=== PATIENT | female | born 2005 | race Caucasian/White ===

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

== ENCOUNTER 2023-02-21 10:46 | Emergency (ER) | payer MEDICAID, SELFPAY ==
[2023-02-21 11:32] VITALS: BP 115/70; PULSE 71; RESP 18; TEMP 36.9; O2SAT 98; BMI 20.5
--- NOTE | 2023-02-21 11:54 | EXP.UTC ---
Discharge Plan Disposition Patient Disposition: Home, Self-Care Condition: Good Prescriptions Prescriptions: New dicyclomine 10 mg capsule 10 mg PO TID PRN (Reason: cramping) Qty: 15 0RF ondansetron 4 mg tablet,disintegrating 4 mg PO Q8H PRN (Reason: nausea and vomiting) Qty: 10 0RF No Action lwtwrezwdokyssm-hweodseqv-SO [Bromfed DM] 2-30-10 mg/5 mL Syrup 10 ml PO Q4H PRN (Reason: Cough) Qty: 240 0RF ondansetron 4 mg tablet,disintegrating 4 mg PO Q8H PRN (Reason: nausea and vomiting) Qty: 10 0RF ffkcgphyfqsdgxv-aegaterno-KL [Bromfed DM] 2-30-10 mg/5 mL Syrup 10 ml PO Q4H PRN (Reason: Cough) Qty: 200 0RF Referrals Follow up/Referrals: Steve Monge MD [Primary Care Provider] - See instructions Activity Restrictions/Add. Instructions Additional Instructions/Restrictions: Drink extra fluids with and between meals. If you have difficulty drinking, try very small amounts of water or suck on ice chips. ? Avoid fruit juices, as these do not replace minerals and can actually increase diarrhea. ? Children and adults can use sports drinks to replenish electrolytes. Younger children and infants should use products formulated for children, like oral rehydration solutions. ? Eat food in small amounts and let your stomach recover. ? Get lots of rest. You may feel tired or weak. ? No greasy or fried foods for the next 24-48 hours BRAT diet Bananas Rice Apples and [place] ? Make sure to drink plenty of liquids ? Return if needed ? Straight to ER if any life threatening symptoms ? Zofran as prescribed ? You was given an outpatient order for diarrhea panel, please collect specimen and bring back to outpatient lab then call back to the [facility] or follow up with family doctor for results ? Follow up with family doctor in the next 48-72 hours if no improvement or any worsening of symptoms Clinical Impressions Clinical Impression: Nausea vomiting and diarrhea Stand Alone Forms Stand Alone Forms: Work/School Release Instructions Patient Instructions: Nausea and Vomiting-Adult, Diarrhea, DI for Headache Discharge ED Provider: Salima Burns [facility] [place] HPI General Stated complaint: Vomiting, headache, bodyaches Mode of Arrival: Ambulatory Source of Information: Patient Limitations: No Limitations Time Seen by Provider: 02/21/23 11:54 Description of Symptoms (Recalled from Triage Doc. by RN): pt c/o body aches, n/v/d, and a HUBBARD x4d HEENT Symptoms (Recalled from RN notes): No Resp Symptoms (Recalled from RN notes): No Skin Symptoms (Recalled from RN notes): No MS Symptoms (Recalled from RN notes): No Functional Status (Recalled from RN notes): wnl History of Present Illness Provider Complaint: Patient states that she has been having low grade fever on and off, body aches, chills, headache and N/V/D States that her kids has been sick with something similar States that she just isnt able to keep much down Related Data Previous Rx's Medication Instructions Recorded edlszdqwhyuipbn-xdeguhkwyavnixl-GM 10 ml PO Q4H PRN Cough #240 mL 07/30/22 2 mg-30 mg-10 mg/5 mL oral syrup (Bromfed DM) ondansetron 4 mg disintegrating 4 mg PO Q8H PRN nausea and 07/30/22 tablet vomiting #10 tabs wzehwcdywpbdnfo-aqitrldunmxjwcj-CN 10 ml PO Q4H PRN Cough #200 mL 10/19/22 2 mg-30 mg-10 mg/5 mL oral syrup (Bromfed DM) dicyclomine 10 mg capsule 10 mg PO TID PRN cramping #15 caps 02/21/23 ondansetron 4 mg disintegrating 4 mg PO Q8H PRN nausea and 02/21/23 tablet vomiting #10 tabs Allergies Allergy/AdvReac Type Severity Reaction Status Date / Time No Known Allergies Allergy Verified 02/21/23 11:36 Worker's Comp Is this a Worker's Comp case?: No [facility] Disclaimer: The information contained in this section may have been updated after the patient was seen, as this information can be updated by other users. Social History (Reviewed 07/30
[2023-02-21 12:16] LABS: UTC Pregnancy Test, Urine Negative (Negative)
[2023-02-21 12:37] VITALS: BP 115/70; PULSE 71; RESP 18; TEMP 36.9
== END 2023-02-21 12:37 | disposition home or self-care (01) ==
PROVIDERS: Emergency Provider Nurse Practitioner; PCP Internal Medicine Adolescent Medicine
DX: R11.2 Nausea with vomiting, unspecified (principal); R19.7 Diarrhea, unspecified; R51.9 Headache, unspecified
CPT/HCPCS: 81025; 99212; 99214; G0463

== ENCOUNTER 2023-04-22 13:21 | Emergency (ER) | payer MEDICAID, SELFPAY ==
[2023-04-22 13:30] VITALS: BP 114/75; PULSE 67; RESP 20; TEMP 36.9; O2SAT 98; BMI 22.4
--- NOTE | 2023-04-22 13:46 | EXP.UTC ---
Discharge Plan Disposition Patient Disposition: Home, Self-Care Condition: Good Referrals Follow up/Referrals: Steve Monge MD [Primary Care Provider] - See instructions Ren Sweet MD [Staff Physician] - See instructions Brea Lentz DO [Staff Physician] - See instructions (Call office for appointment) Roseanne Reyes MD [Staff Physician] - See instructions Activity Restrictions/Add. Instructions Additional Instructions/Restrictions: Call and make appointment with OBGYN Follow up with your Family Doctor if needed Make appointment with OBGYN for further evaluation and treatment Clinical Impressions Clinical Impression: Positive test Instructions Patient Instructions: DI for -- Discomforts and Remedies, Diet Discharge ED Provider: Salima Burns [facility] General Stated complaint: test Mode of Arrival: Ambulatory Source of Information: Patient Limitations: No Limitations Time Seen by Provider: 04/22/23 13:46 Description of Symptoms (Recalled from Triage Doc. by RN): PATIENT STATES SHE IS 1.5 WEEKS LATE ON PERIOD AND HAS HAD 2 POSITIVE AT HOME TESTS. REQUESTING BLOOD TEST HEENT Symptoms (Recalled from RN notes): No Resp Symptoms (Recalled from RN notes): No Skin Symptoms (Recalled from RN notes): No MS Symptoms (Recalled from RN notes): No Functional Status (Recalled from RN notes): WNL History of Present Illness Provider Complaint: Patient states that she is late on her period States that she has taken 2 home tests and they was positive States that she came in today wanting to get a blood test to see what it would show Related Data Allergies Allergy/AdvReac Type Severity Reaction Status Date / Time No Known Allergies Allergy Verified 02/21/23 11:36 Worker's Comp Is this a Worker's Comp case?: No PFSH [facility] Disclaimer: The information contained in this section may have been updated after the patient was seen, as this information can be updated by other users. Social History Smoking Status: Never smoker alcohol intake: never substance use type: denies use current occupational status: student and other Travel in the last 8 weeks: None household members: family housing: house caffeine: No ROS Obtained: Yes All systems reviewed & no additional complaints except as documented and Yes Systems reviewed as appropriate & no additional complaints except as documented Constitutional Constitutional: Reports system reviewed and no additional complaints, except as documented and Reports as per HPI ENT Ears, Nose, Mouth, and Throat: Reports system reviewed and no additional complaints, except as documented and Reports as per HPI Cardiovascular Cardiovascular: Reports system reviewed and no additional complaints, except as documented and Reports as per HPI Respiratory Respiratory: Reports system reviewed and no additional complaints, except as documented and Reports as per HPI Gastrointestinal Gastrointestingal: Reports system reviewed and no additional complaints, except as documented and as per HPI Genitourinary Female Genitourinary: Reports system reviewed and no additional complaints, except as documented, Reports as per HPI and Reports other (1 and half week Late on her period) Musculoskeletal Musculoskeletal: Reports system reviewed and no additional complaints, except as documented and Reports as per HPI Physical Exam General General appearance: alert and in no apparent distress Respiratory Respiratory exam: Present normal lung sounds bilaterally; Absent respiratory distress or wheezes Cardiovascular Cardiovascular exam: Present regular rate, normal rhythm and normal heart sounds Neurological Exam Neurological exam: Present alert, oriented X3 and normal gait Medical Decision Making Aakash Inquiry Pt receiving controlled substance: No Aakash was queried for this pa
[2023-04-22 13:52] LABS: HCG Qualitative, Serum Positive (Negative)
[2023-04-22 13:55] VITALS: BP 114/75; PULSE 67; RESP 20; TEMP 36.9; O2SAT 98
== END 2023-04-22 14:05 | disposition home or self-care (01) ==
PROVIDERS: Emergency Provider Nurse Practitioner; PCP Internal Medicine Adolescent Medicine
DX: Z32.01 Encounter for pregnancy test, result positive (principal)
CPT/HCPCS: 84703; 99212; G0463

== ENCOUNTER → 2023-05-13 17:08 | Outpatient (CLI) | payer MEDICAID, SELFPAY ==
[2023-05-17 11:46] LABS: Neisseria gonorrhoeae, NAA Negative (Negative)
== END ==
PROVIDERS: PCP Internal Medicine Adolescent Medicine; Visit Provider Nurse Practitioner Obstetrics & Gynecology
DX: Z34.91 Encounter for supervision of normal pregnancy, unspecified, first trimester (principal); Z3A.08 8 weeks gestation of pregnancy
CPT/HCPCS: 87086; 87088; 87186; 87491; 87591

== ENCOUNTER → 2023-06-19 07:52 | Outpatient (CLI) | payer MEDICAID, SELFPAY ==
--- NOTE | 2023-06-19 08:10 | US_ITS ---
PROCEDURE: US OB >= 14 WEEKS FETUS CLINICAL INDICATION: 20 week anatomy scan COMPARISON: No exams were available for comparison FINDINGS: Transvaginal sonographic images of the pelvis were obtained. From her last menstrual period she is 14weeks 1day. An intrauterine gestational sac is present with a pole with a crown-rump length of 5.86cm correlating to gestational age of 12weeks 5days. BPD 13 weeks 2 days AC 12 weeks 3 days Femur length 12 weeks 2 days heart tones are present with an FHR of 165bpm. Estimated due date by ultrasound is December 27, 2023. Cervix measures 3.6 cm. Limited anatomy appears normal. Cord insertion, three-vessel cord, stomach, bladder, kidneys, placenta anterior. The right ovary is seen and appears normal. It measures 3.5 cm x 1.5 cm x 2.5 cm. The left ovary is seen and appears normal. It measures 2.3 cm x 3.0 cm x 1.9 cm. There is no fluid in the cul-de-sac. IMPRESSION: 1. Viable fetus within the uterine cavity. 2. Dates are off by approximately 9 days. Due date by ultrasound is December 27, 2023. 3. Both ovaries are seen and appear normal. Dictated by: Ren Sweet MD 06/19/2023 13:44 Ren Sweet MD in OV 06/19/2023 13:44
[2023-06-19 08:28] LABS: Basophils % 0.4 % (0.1-2.0); Eosinophils # 0.1 K/mm3 (0.0-0.4); Eosinophils % 1.1 % (0.1-12.0); Hematocrit 35.8 % (37.0-47.0); Hemoglobin 12.6 g/dL (12.2-16.2); Lymphocytes % 31.3 % (10-50); Mean Corpuscular HGB Conc 35.2 g/dL (31.8-35.4); Mean Corpuscular Hemoglobin 31.8 pg (27.0-31.2); Mean Corpuscular Volume 90.2 fl (81-99); Mean Platelet Volume 7.9 fl (7.4-10.4); Monocytes # 0.4 K/mm3 (0.1-1.0); Monocytes % 5.9 % (1.7-9.3); Neutrophils # 3.8 K/mm3 (1.8-7.8); Neutrophils % 61.3 % (37.0-80.0); Platelet Count 181 K/mm3 (142-424); Red Blood Count 3.97 M/mm3 (4.20-5.40); Red Cell Distribution Width 13.1 % (11.5-17.5); White Blood Count 6.2 K/mm3 (4.5-13.0)
[2023-06-20 10:30] LABS: HIV Screen 4th Generation wRfx Non Reactive (Non Reactive); Rapid Plasma Reagin Ab Titer Non Reactive (NonRea<1:1)
[2023-06-20 12:26] LABS: Rubella Antibodies, IgG <0.90 index (Immune >0.99)
[2023-06-26 08:40] LABS: Hepatitis B Surface Antigen Negative; Hepatitis C Antibody Non Reactive
== END ==
LOC: RAD 07:55
PROVIDERS: PCP Internal Medicine Adolescent Medicine; Visit Provider Nurse Practitioner Obstetrics & Gynecology
DX: Z34.91 Encounter for supervision of normal pregnancy, unspecified, first trimester (principal); Z3A.13 13 weeks gestation of pregnancy
CPT/HCPCS: 36415; 76805; 85025; 86593; 86703; 86762; 86850; 86870; 87340; 87380; G0432

== ENCOUNTER 2023-07-09 19:26 | Emergency (ER) | payer MEDICAID, SELFPAY ==
[2023-07-09 19:38] VITALS: BP 109/53; PULSE 75; O2SAT 99
[2023-07-09 19:40] VITALS: BP 109/53; PULSE 94; RESP 18; TEMP 36.7; O2SAT 100; BMI 22.1
--- NOTE | 2023-07-09 20:04 | PC.NURSE ---
performing bedside ultrasound
--- NOTE | 2023-07-09 20:25 | PC.NURSE ---
LACHELLE WATSON at bedside with US machine
[2023-07-09 20:31] LABS: Microscopic, Urine URINE MICROSCOPIC (MICROSCOPIC)
[2023-07-09 20:40] LABS: Appearance,Urine CLEAR (Clear); Bilirubin,Urine Negative (Negative); Blood, Urine Negative (Negative); Color,Urine YELLOW (Yellow); Glucose,Urine (UA) Negative (Negative); Ketones,Urine Negative (Negative); Leukocyte Esterase,Urine Negative (Negative); Nitrate,Urine Negative (Negative); PH,Urine 7.5 (5.0-8.5); Protein,Urine Negative (Negative); Specific Gravity, Urine 1.015 (1.005-1.030); Urobilinogen,Urine 0.2 EU/dl (0.2)
--- NOTE | 2023-07-09 20:46 | US_ITS ---
PROCEDURE INFORMATION: Exam: US After First Trimester, Transabdominal Exam date and time: 07/09/2023 9:12 PM Age: 17 years old Clinical indication: Pain; Other: Cramping; Gestational age or lmp: 15 weeks 4 days; TECHNIQUE: Imaging protocol: Real-time transabdominal obstetrical ultrasound of the maternal pelvis and a second or third trimester with image documentation. COMPARISON: US OB >= 14 WEEKS FETUS 06/19/2023 8:17 AM FINDINGS: Gestation: There is a small focus of decreased echogenicity adjacent to the gestational sac. heart rate: Estimated weight is 119 g. heart rate is 160 bpm. presentation: Fetus is in breech presentation. Placenta: There is an anterior placenta without evidence for previa. Amniotic fluid: Amniotic fluid is normal for gestational age. BIOMETRY: Gestational age (AUA): Estimated gestational age is 15 weeks 3 days. Estimated due date (AUA): December 28, 2023 Estimated weight: 119 g Biparietal diameter (BPD): Biparietal diameter is 3.1 cm. Head circumference (HC): Head circumference is 10.7 cm. Occipitofrontal diameter-Percentile: Abdominal circumference (AC): Abdominal circumference is 9.2 cm. Femur length (FL): Femur length is 1.7 cm. MATERNAL: Uterus: Unremarkable. Cervix: Unremarkable. Right ovary/adnexa: The right ovary measures 4.0 x 2.9 x 2.6 cm. Left ovary/adnexa: The left ovary measures 3.3 x 2.4 x 3.2 cm. Intraperitoneal space: No intraperitoneal free fluid. IMPRESSION: Single live intrauterine gestation measuring approximately 15 weeks 3 days. Suspect small subchorionic hemorrhage, follow-up study is suggested.
--- NOTE | 2023-07-09 20:47 | PC.NURSE ---
notified xray of transvaginal order
--- NOTE | 2023-07-09 21:16 | PC.NURSE ---
research food technologist at bedside
[2023-07-09 21:20] LABS: Amorphous Sediment,Urine 3+ /lpf; Bacteria,Urine Trace /lpf
--- NOTE | 2023-07-09 21:45 | HMH.EDGENADL ---
Discharge Plan Disposition Patient Disposition: Home, Self-Care Chief Complaint: Abdominal Pain Prescriptions Prescriptions: No Action Classic 28 mg iron- 800 mcg tablet 1 tab PO DAILY promethazine 12.5 mg tablet 6.25 mg PO Q6H PRN (Reason: nausea and vomiting) Qty: 30 1RF Referrals Follow up/Referrals: Steve Monge MD [Primary Care Provider] - See instructions Activity Restrictions/Add. Instructions Additional Instructions/Restrictions: Call your family doctor to establish care for this visit to the emergency department and schedule follow-up within 48 hours to ensure improvement. If you have any worsening of your condition or any other concerning signs or symptoms, return to the emergency department or your primary care doctor for further evaluation. Maintain follow-up with [facility] Clinical Impressions Clinical Impression: Subchorionic hemorrhage, Abdominal cramping Instructions Patient Instructions: DI for Acute Abdominal Pain Discharge ED Provider: Fidel Santos General Adult HPI General Chief complaint: Abdominal Pain Stated complaint: cramps, 15 weeks Time Seen by Provider: 07/09/23 19:31 Mode of Arrival: Ambulatory Source of Information: Patient Limitations: No Limitations Description of Symptoms (Recalled from ER Triage Doc. by RN): pt is 15 weeks and noticed a sharp stabbing pain in the right side today upon any sudden movement or stretching. pt sees and has an appt with him next saturday, pt denies any n/v or bleeding History of Present Illness HPI narrative: 17-year-old female who was currently 15 weeks presenting with abdominal cramping. Patient states that she is O-. Started having abdominal cramping today. Concerned because she needed to receive RhoGAM in the past secondary to cramping and subchorionic hemorrhage, so came to the ER for further evaluation. Pain is intermittent, stabbing, right lower quadrant and left lower quadrant, does not radiate. No vaginal discharge or bleeding, fevers or chills, vomiting, bowel or bladder symptoms. Related Data Home Medications Medication Instructions Recorded Confirmed vits no.[id number]-ferrous fum 1 tab PO DAILY 05/13/23 06/10/23 28 mg iron-folic acid 800 mcg tablet (Classic ) Previous Rx's Medication Instructions Recorded promethazine 12.5 mg tablet 6.25 mg PO Q6H PRN nausea and 05/13/23 vomiting #30 tabs Allergies Allergy/AdvReac Type Severity Reaction Status Date / Time No Known Allergies Allergy Verified 06/10/23 09:57 [facility] Disclaimer: The information contained in this section may have been updated after the patient was seen, as this information can be updated by other users. Medical History Gastroenteritis Surgical History No history of previous surgery Family History Other No significant family history Social History (Updated 05/13/23 @ 09:41 by RICARDA Guerra) Smoking Status: Current every day smoker tobacco type: e-cigarettes alcohol intake: never substance use type: denies use current occupational status: employed Travel in the last 8 weeks: None household members: family housing: house caffeine: No ROS Obtained: Yes All systems reviewed & no additional complaints except as documented Physical Exam General General appearance: alert, in no apparent distress and other ( ) Head Head exam: atraumatic and normocephalic Eye Eye exam: Present normal appearance, PERRL and EOMI ENT ENT exam: Present mucous membranes moist Neck Neck exam: Present normal inspection, full ROM and trachea midline Respiratory Respiratory exam: Absent respiratory distress, wheezes, stridor, accessory muscle use or prolonged expiratory phase Cardiovascular Cardiovascular exa
--- NOTE | 2023-07-09 22:14 | PC.NURSE ---
rounded on patient, given pillow and blanket
[2023-07-09 22:32] VITALS: BP 124/45; PULSE 84; RESP 14; TEMP 36.7; O2SAT 100
== END 2023-07-09 22:33 | disposition home or self-care (01) ==
LOC: UTC 19:29 → ER 19:30
PROVIDERS: Emergency Provider Emergency Medicine; PCP Internal Medicine Adolescent Medicine
DX: O41.8X20 Other specified disorders of amniotic fluid and membranes, second trimester, not applicable or unspecified (principal); O26.892 Other specified pregnancy related conditions, second trimester; O99.332 Smoking (tobacco) complicating pregnancy, second trimester; R10.31 Right lower quadrant pain; R10.32 Left lower quadrant pain; F17.290 Nicotine dependence, other tobacco product, uncomplicated
CPT/HCPCS: 36415; 76805; 81001; 86870; 96372; 99285; J2790

== ENCOUNTER → 2023-08-14 09:29 | Outpatient (CLI) | payer MEDICAID, SELFPAY ==
--- NOTE | 2023-08-14 09:32 | US_ITS ---
PROCEDURE: US OB /MATERNAL DETAIL CLINICAL INDICATION: 20 week anatomy scan COMPARISON: No exams were available for comparison FINDINGS: Transabdominal sonographic images of the pelvis were obtained. From her established due date she is 20 weeks 5 days. Single viable intrauterine gestation. Cephalic position. Placenta: Anteriorplacenta grade 1. There is an average amount of fluid. The cervix appears satisfactory. Closed and measuring 3.1 cm in length. Complete survey performed and was unremarkable on the submitted images as in PACS. No discrete anomalies identified on survey imaging by technologist. Active fetus. Three-vessel cord with satisfactory umbilical cord insertion. 4- chamber heart noted. Situs, aortic arch, LVOT, RVOT, three-vessel view Survey of brain & ventricles Unremarkable. Cerebellum, cisterna magna, thalamus and choroid plexus appear normal. Face and neck survey unremarkable. Profile, nasion, lips and nose appear normal. Diaphragm and chest views unremarkable. Abdomen: Both kidneys noted and unremarkable. There is mild right renal pyelectasis measuring 3.8 mm. Stomach and bladder noted and satisfactory. Spine: Survey of the spine satisfactory with no anomalies identified nor imaged. Cervical, thoracic and lower spine appears normal. Both arms and legs noted. Amniotic Fluid: Adequate. Measurements: Average ultrasound age 20weeks 1day. Estimated due date by ultrasound age 0312/31/2023. Estimated weight 326g BPD = 20weeks 2days HC = 20weeks 1day AC = 20weeks FL = 20weeks Growth Percentile= 14 Heart Rate = 142bpm Cerebellum = 20weeks 3days Humerus = 19weeks 5days HC/AC is 1.2 FL/BPD is 0.68 FL/AC is 0.22 IMPRESSION: 1. Viable fetus in the cephalic presentation with an anterior placenta grade 1. 2. The fluid is within normal limits. 3. biometry is consistent with dates. 4. Anatomical scan appears normal. 5. Mild right renal pyelectasis measuring 3.8 mm. Suggest repeat scan at 28 weeks. Dictated by: Ren Sweet MD 08/14/2023 15:39 Ren Sweet MD in [place] 08/14/2023 15:39
== END ==
PROVIDERS: PCP Internal Medicine Adolescent Medicine; Visit Provider Nurse Practitioner Obstetrics & Gynecology
DX: Z34.92 Encounter for supervision of normal pregnancy, unspecified, second trimester (principal); Z3A.20 20 weeks gestation of pregnancy
CPT/HCPCS: 76811

== ENCOUNTER 2023-10-09 12:16 | Outpatient (CLI) | payer MEDICAID, SELFPAY ==
[2023-10-09 12:40] LABS: Basophils % 0.2 % (0.1-2.0); Eosinophils # 0.1 K/mm3 (0.0-0.4); Eosinophils % 0.8 % (0.1-12.0); Hematocrit 34.3 % (37.0-47.0); Hemoglobin 12.4 g/dL (12.2-16.2); Lymphocytes # 1.6 K/mm3 (0.7-4.5); Lymphocytes % 19.3 % (10-50); Mean Corpuscular Hemoglobin 33.5 pg (27.0-31.2); Mean Platelet Volume 7.7 fl (7.4-10.4); Monocytes # 0.3 K/mm3 (0.1-1.0); Monocytes % 2.9 % (1.7-9.3); Neutrophils # 6.5 K/mm3 (1.8-7.8); Neutrophils % 76.8 % (37.0-80.0); Platelet Count 163 K/mm3 (142-424); Red Blood Count 3.69 M/mm3 (4.20-5.40); Red Cell Distribution Width 12.7 % (11.5-17.5); White Blood Count 8.5 K/mm3 (4.5-13.0)
[2023-10-09 14:25] LABS: Glucose 1 Hour 117 mg/dL (74-100); Glucose,Fasting 117 mg/dl (74-100)
[2023-10-09 14:40] VITALS: BP 127/76; PULSE 99; RESP 20; TEMP 36.7; O2SAT 100
[2023-10-09] MEDS: RHO(D) IMMUNE GLOBULIN 1,500 UNIT SYRINGE IM (14:45)
== END 2023-10-09 15:00 | disposition home or self-care (01) ==
PROVIDERS: PCP Internal Medicine Adolescent Medicine; Visit Provider Nurse Practitioner Obstetrics & Gynecology
DX: Z34.93 Encounter for supervision of normal pregnancy, unspecified, third trimester (principal); Z3A.28 28 weeks gestation of pregnancy
CPT/HCPCS: 82951; 85025; 86870; 96372; J2790

== ENCOUNTER → 2023-10-11 07:54 | Outpatient (CLI) | payer MEDICAID, SELFPAY ==
--- NOTE | 2023-10-11 07:55 | US_ITS ---
PROCEDURE: US OB LIMITED POSITION CLINICAL INDICATION: pyelectasis of fetus on ultrasound COMPARISON: US US OB /MATERNAL DETAIL from 08/14/2023 FINDINGS: Transabdominal sonographic images of the pelvis were obtained. The following parameters are obtained: From her established due date she is 29weeks 0 days Viable fetus in the breech presentation with an anterior placenta grade 1. The cervix measures 2.9 cm. heart rate: 134bpm bpm. Amniotic fluid. Normal. No obvious anomalies evident. profile seen, nasion, stomach, bladder, kidneys, three-vessel cord, four chamber heart appear normal. There continues to be minimal renal pelvis dilation measuring 3.5 mm bilaterally. IMPRESSION: 1. Viable fetus in the breech presentation with an anterior placenta grade 1. 2. The fluid is within normal limits. 3. There continues to be minimal renal pyelectasis bilaterally. 4. The bilateral pyelectasis measures 3.5 mm. It has not changed appreciably since her 20 week exam. 5. Suggest follow-up ultrasound of the fetus . Dictated by: Ren Sweet MD 10/13/2023 10:15 Ren Sweet MD in [place] 10/13/2023 10:15
== END ==
PROVIDERS: PCP Internal Medicine Adolescent Medicine; Visit Provider Nurse Practitioner Obstetrics & Gynecology
DX: O35.EXX0 Maternal care for other (suspected) fetal abnormality and damage, fetal genitourinary anomalies, not applicable or unspecified (principal)
CPT/HCPCS: 76815

== ENCOUNTER 2023-11-13 09:10 | Emergency (ER) | payer MEDICAID, SELFPAY ==
[2023-11-13 09:30] VITALS: BP 109/65; PULSE 64; RESP 19; TEMP 37; O2SAT 97; BMI 25.6
--- NOTE | 2023-11-13 09:46 | EXP.UTC ---
Discharge Plan Disposition Patient Disposition: Home, Self-Care Condition: Good Prescriptions Prescriptions: No Action famotidine [Pepcid] 20 mg tablet 20 mg PO BID Qty: 60 2RF ferrous sulfate 325 mg (65 mg iron) tablet 325 mg PO DAILY Qty: 30 11RF Referrals Follow up/Referrals: Steve Monge MD [Primary Care Provider] - See instructions Activity Restrictions/Add. Instructions Additional Instructions/Restrictions: *Monitor Temp, Over the counter Motrin or Tylenol as directed/as needed Tylenol every 4 hours and Motrin every 6 hours (as long as your family doctor has told you that you can take it) for fever or pain. and straight to ER if unable to lower temp less than 101.0 after medication given *Warm salt water gargles may help to soothe the throat *Throat Lozenges? *Warm fluids like tea with honey may help to soothe the throat? *Sleep elevated *Humidifier/Vaporizer *Your throat swab was sent for culture. Those results are typically sent to your primary care. Be sure to follow up in 2-3 days with your family doctor/primary care physician if no improvement so they can review those result and treat if necessary. If you don?t have a primary care doctor, I recommend you get one but in the mean time, you will have to return to a walk in clinic Follow up IMMEDIATELY for new or worsening symptoms or no Noticeable improvement over the next 48-72 hours. 911 for difficulty breathing or swallowing Clinical Impressions Clinical Impression: Viral upper respiratory infection Instructions Patient Instructions: DI for Viral Upper Respiratory Infection -- Adult Discharge ED Provider: Salima Burns [facility] [place] HPI General Stated complaint: Sore throat, runny nose, cough Mode of Arrival: Ambulatory Source of Information: Patient Limitations: No Limitations Time Seen by Provider: 11/13/23 09:46 Description of Symptoms (Recalled from Triage Doc. by RN): PATIENT C/O SORE THROAT THAT STARTED 3 DAYS AGO AND GOT WORSE LAST NIGHT HEENT Symptoms (Recalled from RN notes): Yes Resp Symptoms (Recalled from RN notes): No Skin Symptoms (Recalled from RN notes): No MS Symptoms (Recalled from RN notes): No Functional Status (Recalled from RN notes): WNL History of Present Illness Provider Complaint: Patient states that she has been having sore throat and nasal congestion that started several days ago and got worse last night States that she is 33wks OB and wanted to make sure that she didnt have strep throat Related Data Previous Rx's Medication Instructions Recorded famotidine 20 mg tablet (Pepcid) 20 mg PO BID #60 tabs 10/09/23 ferrous sulfate 325 mg (65 mg 325 mg PO DAILY #30 tabs 11/06/23 iron) tablet Allergies Allergy/AdvReac Type Severity Reaction Status Date / Time No Known Allergies Allergy Verified 11/06/23 10:43 Worker's Comp Is this a Worker's Comp case?: No [facility] Disclaimer: The information contained in this section may have been updated after the patient was seen, as this information can be updated by other users. Medical History Gastroenteritis Surgical History No history of previous surgery Family History Other No significant family history Social History Smoking Status: Current every day smoker tobacco type: e-cigarettes alcohol intake: never substance use type: denies use current occupational status: employed Travel in the last 8 weeks: None household members: family housing: house caffeine: No ROS Obtained: Yes All systems reviewed & no additional complaints except as documented and Yes Systems reviewed as appropriate & no additional complaints except as documented Constitutional Constitutional: Reports system reviewed and no additional complaints, except as documented and Reports as per HPI ENT Ears, Nose, Mouth, and Throat: Reports system reviewed and no additional complaints, except as documented, Reports as per HPI, Reports nasal congestion and Reports sore throat Cardiovascular Cardiovascular: Reports system reviewed and no additional complaints, except as documented and Reports as per HPI Respiratory Respiratory: Reports system reviewed and no additional complaints, except as documented and Reports as per HPI Gastrointestinal Gastrointestingal: Reports system reviewed and no additional complaints, except as documented and as per HPI Physical Exam General General appearance: alert and in no apparent distress ENT ENT exam: Present mucous membranes moist Expanded ENT Exam Throat exam: Present tonsillar erythema Respiratory Respiratory exam: Present normal lung sounds bilaterally; Absent respiratory distress or wheezes Cardiovascular Cardiovascular exam: Present regular rate, normal rhythm and normal heart sounds Neurological Exam Neurological exam: Present alert, oriented X3 and normal gait Medical Decision Making Aakash Inquiry Pt receiving controlled substance: No Aakash was queried for this patient: No Vital Signs: 11/13/23 09:30 Temperature 98.6 F Temperature Source Oral Pulse Rate [Left Brachial] 64 Respiratory Rate 19 Blood Pressure [Left Arm] 109/65 L Blood Pressure Mean [Left Arm] 79 Blood Pressure Source [Left Arm] Automatic Cuff Blood Pressure Position [Left Arm] Sitting 02 Sat by Pulse Oximetry 97 Oxygen Delivery Method Room Air Lab Data Lab results reviewed: Yes I reviewed the patient's lab results.
[2023-11-13 09:55] VITALS: BP 109/65; PULSE 64; RESP 19; TEMP 37; O2SAT 97
[2023-11-13 09:57] LABS: UTC Strep Screen (Rapid) Negative (Negative)
== END 2023-11-13 09:58 | disposition home or self-care (01) ==
PROVIDERS: Emergency Provider Nurse Practitioner; PCP Internal Medicine Adolescent Medicine
DX: O26.893 Other specified pregnancy related conditions, third trimester (principal); R07.0 Pain in throat; R09.81 Nasal congestion; B34.9 Viral infection, unspecified; Z3A.33 33 weeks gestation of pregnancy
CPT/HCPCS: 87880; 99212; 99213; G0463

== ENCOUNTER 2023-11-14 21:57 | Emergency (ER) | payer MEDICAID, SELFPAY ==
[2023-11-14 21:59] VITALS: BP 121/74; PULSE 83; RESP 16; TEMP 36.5; O2SAT 100; BMI 26.2
[2023-11-14 22:24] LABS: Coronavirus 19, PCR Not Detected (NotDetected); Influenza A, PCR Not Detected (NotDetected); Influenza B, PCR Not Detected (NotDetected)
[2023-11-14] MEDS: ACETAMINOPHEN 500MG TAB 1000 MG PO (22:30)
[2023-11-14 22:43] LABS: Strep Scrn Group A (Rapid) Negative (Negative)
--- NOTE | 2023-11-14 22:55 | HMH.EDGENADL ---
Discharge Plan Disposition Patient Disposition: Home, Self-Care Prescriptions Prescriptions: No Action No Known Home Medications Referrals Follow up/Referrals: Steve Monge MD [Primary Care Provider] - See instructions Activity Restrictions/Add. Instructions Additional Instructions/Restrictions: Take Tylenol at home as needed for pain. Hydrate is much as possible. Follow-up with your primary care provider over the next week for reassessment. Return to the emergency department for new or worsening symptoms. Your full respiratory swab is pending at this time. Clinical Impressions Clinical Impression: Pharyngitis Stand Alone Forms Stand Alone Forms: Work/School Release Instructions Patient Instructions: DI for Pharyngitis/Tonsillopharyngitis -- Adult Discharge ED Provider: Jessika Willis General Adult HPI General Chief complaint: Upper Respiratory Infection Stated complaint: exposed to flu sore throat, body aches Time Seen by Provider: 11/14/23 22:10 Mode of Arrival: Ambulatory Source of Information: Patient Limitations: No Limitations Description of Symptoms (Recalled from ER Triage Doc. by RN): pt c/o sore throat and body aches since saturday. pt states was seen at [facility] on saturday and tested for strep which was negative. pt is 33 weeks History of Present Illness HPI narrative: This patient is a 17-year-old female who is approximate 33 weeks presenting to the emergency department for evaluation with concern for sore throat, cough, and congestion. She was seen at [facility] yesterday and tested negative for strep. She states that her throat is still hurting very bad, and she was worried that it could be affecting the baby, so she decided to come in. She also has some mild nausea and bodyaches. Overall, she did states that she feels very bad and she is afraid to take medications given that she is . No other issues noted, such as abdominal pain, vomiting, changes bowel movements, or other issues. Related Data Home Medications Medication Instructions Recorded Confirmed No Known Home Medications 11/14/23 11/14/23 Allergies Allergy/AdvReac Type Severity Reaction Status Date / Time No Known Allergies Allergy Verified 11/06/23 10:43 [facility] Disclaimer: The information contained in this section may have been updated after the patient was seen, as this information can be updated by other users. Medical History Gastroenteritis Surgical History No history of previous surgery Family History Other No significant family history Social History Smoking Status: Current every day smoker tobacco type: e-cigarettes alcohol intake: never substance use type: denies use current occupational status: employed Travel in the last 8 weeks: None household members: family housing: house caffeine: No ROS Obtained: Yes All systems reviewed & no additional complaints except as documented Physical Exam General General appearance: alert and in no apparent distress Head Head exam: atraumatic and normocephalic Eye Eye exam: Present normal appearance, PERRL and EOMI ENT ENT exam: Present normal exam, normal oropharynx, mucous membranes moist and normal external ear exam Neck Neck exam: Present normal inspection, full ROM and trachea midline; Absent tenderness Chest Chest inspection: Present normal inspection and symmetric chest wall rise; Absent tenderness Respiratory Respiratory exam: Present normal lung sounds bilaterally; Absent respiratory distress, wheezes, stridor or accessory muscle use Cardiovascular Cardiovascular exam: Present regular rate and normal rhythm Abdominal Exam Abdominal exam: Present soft; Absent distention, tenderness or guarding Extremities Exam Extremities exam: Present normal inspection, full ROM and normal capillary refill; Absent tenderness or edema Back Exam Back exam: Present normal inspection and full ROM; Absent tenderness Neurological Exam Neurological exam: Present alert, oriented X3, CN II-XII intact and normal gait; Absent motor sensory deficit Psychiatric Psychiatric exam: Present normal affect and normal mood Skin Skin exam: Present warm and dry Medical Decision Making Medical Records Medical records reviewed: Yes I reviewed the patient's medical records. Aakash Inquiry Pt receiving controlled substance: No Vital Signs: 11/14/23 21:59 11/14/23 23:28 Temperature 97.7 F 97.7 F Temperature Source Oral Oral Pulse Rate 80 Pulse Rate [Right] 83 Respiratory Rate 16 16 Blood Pressure 115/72 Blood Pressure [Right Arm] 121/74 Blood Pressure Mean [Right Arm] 89 02 Sat by Pulse Oximetry 100 Lab Data Lab results reviewed: Yes I reviewed the patient's lab results. Lab Results 11/14/23 22:05: SARS-CoV-2 (PCR) Not detected, Influenza A Untype (PCR) Not detected, Influenza Type B (PCR) Not detected 11/14/23 22:30: Group A Strep Rapid Negative Orders (Tests/Meds): ED MEDICATIONS Discontinued Medications Generic Name Dose Route Start Last Admin Trade Name Tommy PRN Reason Stop Dose Admin Acetaminophen 1,000 mg 11/14/23 22:16 11/14/23 22:30 Acetaminophen 500mg Tab PO 11/14/23 22:17 1,000 mg ONCE ONE Administration Lidocaine HCl 15 ml 11/14/23 23:21 11/14/23 23:25 Lidocaine 2% Viscous Deb 15ml Udc PO 11/14/23 23:22 15 ml ONCE ONE Administration ORDERS Category Date Time Status Full Resp Panel w/COVID ([facility]) Routine Lab 11/14/23 23:21 Ordered Rapid PCR Covid and Flu A/B Stat Lab 11/14/23 22:05 Completed Strep Scrn Group A (Rapid) Stat Lab 11/14/23 22:30 Completed Strep Screen Confirmation Stat Micro 11/14/23 22:30 Received Medical Decision Narrative: In summary, this patient is a 17-year-old female presenting to the Emergency Department for evaluation of sore throat, body aches, and nausea with negative strep yesterday. Differential diagnoses considered include but are not limited to viral syndrome, pharyngitis, pneumonia. Ruling out the most morbid conditions drove assessment. On exam, the patient is well-appearing. She has mild pharyngeal erythema without exudates. No significant swelling or uvular deviation. She has mild cervical lymphadenopathy without other acute concern. Workup included COVID/flu swab as well as strep swab. She was given Tylenol for symptomatic improvement. Otherwise, exam and history reassuring, so do not feel that other labs or imaging are indicated. On reassessment, the patient is resting comfortably. She is able to tolerate oral intake and has no meningismus, nuchal rigidity, or other concerns. She was given viscous lidocaine for symptomatic improvement. She was negative for strep, COVID, and flu. Full respiratory was offered and is pending. At this time, she is to be appropriate for discharge with instructions for continued supportive management of pharyngitis that is likely viral. She was given strict return precautions and she was discharged in stable condition with instructions for outpatient follow-up. Critical Care Critical Care Time Critical Care Time: No
[2023-11-14] MEDS: LIDOCAINE 2% VISCOUS SOL 15ML UDC 15 ML PO (23:25)
[2023-11-14 23:28] VITALS: BP 115/72; PULSE 80; RESP 16; TEMP 36.5; O2SAT 100
[2023-11-15 00:15] LABS: Adenovirus,PCR Not Detected (NotDetected); Coronavirus 19, PCR Not Detected (NotDetected); Coronavirus 229E Not Detected (NotDetected); Coronavirus NL63 Not Detected (NotDetected); Coronavirus OC43 Not Detected (NotDetected); Coronovirus HKU1,PCR Not Detected (NotDetected); Human Metapneumovirus Not Detected (NotDetected); Influenza A, PCR Not Detected (NotDetected); Influenza AH1, 2009 Not Detected (NotDetected); Influenza AH1, PCR Not Detected (NotDetected); Influenza AH3,PCR Not Detected (NotDetected); Influenza B, PCR Not Detected (NotDetected); Parainfluenza 1, PCR Not Detected (NotDetected); Parainfluenza 2, PCR Not Detected (NotDetected); Parainfluenza 3, PCR Not Detected (NotDetected); Parainfluenza 4, PCR Not Detected (NotDetected); Respiratory Syncytial Virus Not Detected (NotDetected)
[2023-11-15 03:22] LABS: Rhinovirus/Enterovirus Detected (NotDetected)
== END 2023-11-14 23:29 | disposition home or self-care (01) ==
PROVIDERS: Emergency Provider Emergency Medicine; PCP Internal Medicine Adolescent Medicine
DX: O98.513 Other viral diseases complicating pregnancy, third trimester (principal); J02.9 Acute pharyngitis, unspecified; R05.9 Cough, unspecified; R09.81 Nasal congestion; R11.0 Nausea; Z3A.33 33 weeks gestation of pregnancy; O99.333 Smoking (tobacco) complicating pregnancy, third trimester; F17.290 Nicotine dependence, other tobacco product, uncomplicated
CPT/HCPCS: 87430; 87632; 87635; 87636; 99285

== ENCOUNTER 2023-11-26 12:45 | Outpatient (CLI) | payer MEDICAID, SELFPAY ==
--- NOTE | 2023-11-26 12:45 | US_ITS ---
PROCEDURE: US OB BIOPHYSICAL PROFILE CLINICAL INDICATION: sga COMPARISON: US US OB /MATERNAL DETAIL from 08/14/2023 US US OB LIMITED POSITION from 10/11/2023 FINDINGS: Transabdominal sonographic images of the uterus were obtained. From her established due date she is 35weeks 4days. The following parameters are obtained: Viable Fetus in the cephalic presentation with and anterior placenta grade 2. Average ultrasound age is 34weeks 6days, 5 lb 6 oz. Estimated weight 2,441g Measurements: heart Rate = 135bpm BPD = 35weeks 1day, 40th percentile HC = 35weeks 5days, 21st percentile AC = 34weeks 6days, 35th percentile FL = 33weeks 3days, 4th percentile HC/AC is 1.03 FL/BPD is 0.74 FL/AC is 0.21 21 percentile Amniotic fluid index: 10.5cm, MVP 4.81 cm. Qualitative AFV:2 Breathing movements: 2 Gross Body Movements: 2 Tone: 2 Biophysical profile score: 8 Doppler evaluation of the umbilical artery: SD ratio: 2.18-3.0. Resistive index: 0.67 No obvious anomalies evident.Kidneys, stomach, bladder, diaphragm,, four-chamber heart, three-vessel cord appear normal. IMPRESSION: 1. Viable fetus in the cephalic presentation with anterior placenta grade 2. 2. The fluid is within normal limits with an amniotic fluid index of 10.5 cm, MVP 4.81 cm. 3. Biophysical profile /8 with good breathing movement and movement seen. 4. There has been good interval growth and the fetus is currently 21st percentile. Dictated by: Ren Sweet MD 11/26/2023 14:47 Ren Sweet MD in [place] 11/26/2023 14:47
== END 2023-11-26 23:59 ==
LOC: RAD 12:45
PROVIDERS: PCP Internal Medicine Adolescent Medicine; Visit Provider Nurse Practitioner Obstetrics & Gynecology
DX: O36.5930 Maternal care for other known or suspected poor fetal growth, third trimester, not applicable or unspecified (principal); Z3A.35 35 weeks gestation of pregnancy
CPT/HCPCS: 76816; 76819; 76820

== ENCOUNTER 2023-12-04 16:28 | Outpatient (CLI) | payer MEDICAID, SELFPAY | END 2023-12-04 23:59 | LOC: LAB.DROPOF 16:29 | PROVIDERS: PCP Nurse Practitioner Obstetrics & Gynecology; Visit Provider Nurse Practitioner Obstetrics & Gynecology | DX: O26.893 Other specified pregnancy related conditions, third trimester (principal); Z3A.36 36 weeks gestation of pregnancy | CPT/HCPCS: 86403 ==

== ENCOUNTER 2023-12-18 13:21 | Inpatient (IN) | payer MEDICAID, SELFPAY ==
--- NOTE | 2023-12-18 13:57 | HMH.PHAINT1 ---
Pharmacy Intervention Comments: MEDICATION RECONCILIATION COMPLETED ON PATIENT USING EXTNERL FILL HISTORY FROM PHARMACY. -MAR HARRIS, DARYAD
[2023-12-18 14:03] VITALS: BMI 26.8
[2023-12-18 14:51] LABS: Basophils % 0.2 % (0.1-2.0); Eosinophils % 0.3 % (0.1-12.0); Hematocrit 32.5 % (37.0-47.0); Hemoglobin 11.1 g/dL (12.2-16.2); Lymphocytes # 1.8 K/mm3 (0.7-4.5); Lymphocytes % 21.1 % (10-50); Mean Corpuscular HGB Conc 34.1 g/dL (31.8-35.4); Mean Corpuscular Volume 90.9 fl (81-99); Mean Platelet Volume 10.6 fl (7.4-10.4); Monocytes # 0.4 K/mm3 (0.1-1.0); Monocytes % 4.5 % (1.7-9.3); Neutrophils # 6.2 K/mm3 (1.8-7.8); Platelet Count 131 K/mm3 (142-424); Red Blood Count 3.58 M/mm3 (4.20-5.40); Red Cell Distribution Width 13.4 % (11.5-17.5); White Blood Count 8.4 K/mm3 (4.5-13.0)
[2023-12-18 14:59] VITALS: BP 127/81; PULSE 91; RESP 16; TEMP 36.9; O2SAT 100; BMI 28.5
[2023-12-18 15:07] LABS: Barbiturates Screen,Urine Negative ng/ml (<200)
[2023-12-18 15:08] LABS: Cannabinoid Screen,Urine Negative ng/ml (<50); Cocaine Screen,Urine Negative ng/ml (<300)
[2023-12-18 15:09] LABS: Methadone Screen,Urine Negative ng/ml (<300)
[2023-12-18 15:10] LABS: Phencyclidine Screen,Urine Negative ng/ml (<25)
[2023-12-18 15:17] LABS: Activated Partial Thrombo Time 26.2 seconds (22.8-30.6); Fibrinogen 406 mg/dL (229.9-363.5); Prothrombin Time 9.8 seconds (10.1-12.5)
[2023-12-18 15:26] LABS: Opiate Screen,Urine Negative ng/ml (<300)
[2023-12-18 15:27] LABS: Benzodiazepines Screen,Urine Negative ng/ml (<200)
[2023-12-18 15:28] LABS: Alanine Aminotransferase 14 U/L (12-78); Anion Gap 7.6 mEq/L (5-15); Aspartate Amino Transferase 25 U/L (14-36); Blood Urea Nitrogen 7 mg/dl (7-17); Calcium 8.5 mg/dl (8.4-10.2); Carbon Dioxide 20 mmol/L (22.0-30.0); Chloride 112 mmol/L (98-107); Creatinine Clearance Estimated 207 mL/min (50-200); Estimated Glomerular Filt Rate 157 ml/min (>60); GFR (African American) 190 ML/MIN (>60); Glucose 81 mg/dl (74-100); Potassium 3.6 mmoL/L (3.5-5.1); Sodium 136 mmol/L (136-145); Uric Acid 4.8 mg/dl (2.5-6.2)
--- NOTE | 2023-12-18 17:17 | P.HP_ITS ---
History of Present Illness *Admission Date: 12/18/23 *Reason for visit:: Term , -induced hypertension *History of present illness: She is a 18-year-old 1 para 0 at 38 weeks and 5 days gestational age. She came into the office today and her blood pressure was elevated at 140/114. She denies headache, scotomata or epigastric pain. She has significant swelling in her face, hands and feet. O Rh- blood Rubella immune GBS negative. [facility] Disclaimer: The information contained in this section may have been updated after the patient was seen, as this information can be updated by other users. Medical History Gastroenteritis Surgical History No history of previous surgery Family History No significant family history Social History Smoking Status: Current every day smoker tobacco type: e-cigarettes alcohol intake: never substance use type: denies use current occupational status: employed Travel in the last 8 weeks: None household members: family housing: house caffeine: No Review of Systems Review of Systems Review of systems:: pertinent systems reviewed and negative unless documented below Meds Home Medications and Allergies Home Medications Medication Instructions Recorded Confirmed Type ferrous sulfate 325 mg (65 mg 325 mg PO DAILY Supplement 12/04/23 12/18/23 History iron) tablet,delayed release vits no.126-ferrous fum 1 tab PO DAILY Supplement 12/04/23 12/18/23 History 28 mg iron-folic acid 800 mcg tablet (Classic ) New Prescriptions to Start Prescriptions: Allergies Allergy/AdvReac Type Severity Reaction Status Date / Time No Known Allergies Allergy Verified 12/18/23 10:30 Exam Data for Last 24 hours Vital signs and Labs for Last 24 Hours: Temp Pulse Resp BP Pulse Ox O2 Del Method 98.5 F 91 H 16 127/81 100 Room Air 12/18/23 14:59 12/18/23 14:59 12/18/23 14:59 12/18/23 14:59 12/18/23 14:59 12/18/23 14:59 Laboratory Results - last 24 hr 12/18/23 14:20: WBC 8.4, RBC 3.58 L, Hgb 11.1 L, Hct 32.5 L, MCV 90.9, MCH 31.0, MCHC 34.1, RDW 13.4, Plt Count 131 L, MPV 10.6 H, Neut % (Auto) 74.0, Lymph % (Auto) 21.1, [place] % (Auto) 4.5, Eos % (Auto) 0.3, Baso % (Auto) 0.2, Neut # (Auto) 6.2, Lymph # (Auto) 1.8, [place] # (Auto) 0.4, Eos # (Auto) 0.0, Baso # (Auto) 0.0, PT 9.8 L, INR 0.90, APTT 26.2, Fibrinogen 406 H, Sodium 136, Potassium 3.6, Chloride 112 H, Carbon Dioxide 20 L, Anion Gap 7.6, BUN 7, Creatinine 0.50 L, Estimated Creat Clear 207, Estimated GFR 157, Est GFR ( Amer) 190, Glucose 81, Uric Acid 4.8, Calcium 8.5, AST 25, ALT 14, Urine Opiates Screen Negative, Urine Methadone Screen Negative, Ur Barbituates Screen Negative, Ur Phencyclidine Scrn Negative, U Benzodiazepines Scrn Negative, Urine Cocaine Screen Negative, U Marijuana (THC) Screen Negative, Blood Type O Negative, Antibody Screen Positive I & O for Last 24 hours: Intake & Output 12/16/23 12/17/23 12/18/23 12/19/23 11:59 11:59 11:59 11:59 Weight 161 lb Constitutional Constitutional: no acute distress *Routine HEENT Exam Head: Present normocephalic Eye: Present EOMI and PERRL ENT: Present mucous membranes moist *Routine Neck Exam Neck: Present supple; Absent lymphadenopathy *Routine Respiratory Exam Respiratory: Present CTA bilaterally *Routine Cardiovascular Exam Cardiovascular: Present RRR *Routine Abdominal Exam Abdominal: Present soft and normoactive bowel sounds; Absent tenderness *Routine Rectal Exam Rectal:: deferred *Routine Genitalia Exam Genitalia:: deferred *Routine Extremities Exam Extremities: Absent cyanosis, clubbing or edema *Routine Skin Exam Skin: Present warm; Absent rash *Routine Neurological Exam Neurological: Present alert and oriented X3 Assessment and Plan *Assessment and plan (1) -induced hypertension in third trimester: Status: Acute Category: Medical Code(s): O13.3 - Gestational [-induced] hypertension without significant proteinuria, third trimester Plan She is 38 weeks and 5 days with increased blood pressure and significant swelling. She also has proteinuria. Platelets were 131. Uric acid was normal. LFTs were normal. As a result of her increased blood pressure we will go ahead and induce her labor. Her cervix was 2 cm, 25% effaced and Station -2. We will expect a vaginal delivery.
[2023-12-18 17:34] LABS: Amphetamine/Metha Screen,Urine Negative ng/ml (<1000)
[2023-12-18] MEDS: miSOPROStol 100MCG TABLET 25 MCG PO (18:02)
[2023-12-18 20:11] VITALS: BP 146/85; PULSE 87; RESP 17; TEMP 36.9; O2SAT 97
[2023-12-19] MEDS: SODIUM CHLORIDE 0.9% 10ML FLUSH SYRINGE 10 ML IV (00:32)
[2023-12-19] MEDS: ALUMINUM/MAGNESIUM/SIMETHICONE 30ML UDC 30 ML PO ×2 (00:33→05:30)
[2023-12-19] MEDS: DEXTROSE 5%-LACTATED RINGERS 1,000 ML 125 ML IV (04:12)
[2023-12-19] MEDS: OXYTOCIN/RINGERS LACTATE 30 UNITS/500 ML BAG IV (04:35)
[2023-12-19] MEDS: LACTATED RINGERS 1000ML 1,000 ML 500 ML IV (06:26)
[2023-12-19] MEDS: OXYTOCIN/RINGERS LACTATE 30 UNITS/500 ML BAG 40 UNITS IV (07:29)
--- NOTE | 2023-12-19 07:31 | P.PNANES_ITS ---
[facility] Disclaimer: The information contained in this section may have been updated after the patient was seen, as this information can be updated by other users. Medical History Gastroenteritis Surgical History No history of previous surgery Family History No significant family history Social History Smoking Status: Current every day smoker tobacco type: e-cigarettes alcohol intake: never substance use type: denies use current occupational status: employed Travel in the last 8 weeks: None household members: family housing: house caffeine: No [facility] Anesthesia Checklist Patient Identification Patient Identification: Verbal (Name & ) Structural Data Admitted From: Inpatient Planned Operative Procedure/s: labor epidural Consent for Planned Operative Procedure(s) Verified: Yes Airway Assessment Mallampati Score:: Class II C-Spine Mobility Assessed: Yes TMJ Mobility Assessed: Yes Dentition: Good Dentition Neurological Assessment Level of Consciousness: Awake, Alert and Appropriate Anesthesia Plan Anesthesia Risk discussed: Yes Anesthesia Plan: Verified ASA Class: II Anesthesia Type: Epidural
--- NOTE | 2023-12-19 08:28 | P.PCN_ITS ---
Delivery Note Delivery Date:: 12/19/23 Delivery Time:: 07:25 Anesthesia Type: Epidural Was labor medically induced?: Yes Induction method: per misoprostol protocol Gestational age (weeks): 38 Infant delivered prior to 39 weeks?: Yes Justification for early elective delivery:: Pre-eclampsia Infant Gender: Male at 1 minute: 7 at 5 minutes: 9 LAC or MLE?: LAC Delivery Procedure:: She is a 18-year-old 1 now para 0 at 38 and 6 weeks gestational age. She was seen in my office yesterday and had increased blood pressure along with facial, hand and leg swelling. As result of that we elected to induce her labor since she was term. She was admitted yesterday evening and received 1 dose of 25 mg of misoprostol. She subsequently started jorge and overnight progressed to full dilation. She received an epidural and then delivered spontaneously a liveborn male child at 7:25 AM on the morning of December 19, 2023. On deliver the head the anterior shoulder easily delivered followed by the rest the 's body atr aumatically. The baby was vigorous. The oropharynx and nasopharynx were bulb suction. We allowed the cord to continue to pulsate for approximately 1 minute. The cord was then doubly clamped and cut and the infant was placed on the mother's abdomen for further care. The nurses assigned Apgars of 7 at 1 minute and 9 at 5 minutes. We then obtained cord blood. She received IV oxytocin using gentle traction on the cord and countertraction on the fundus I was able to easily deliver the placenta intact 4 minutes after delivery. It had a normal three-vessel cord. She had a left labial tear close to the clitoris that was repaired with interrupted 3-0 Vicryl Rapide suture. I had previously anesthetized this area with 2% Xylocaine with epinephrine. She also had a small posterior vaginal tear that was repaired with interrupted 3-0 Vicryl Rapide suture. She has O Rh- blood, she is rubella immune and was group B streptococcus negative. She plans to bottlefeed. Her estimated blood loss was approximately 150 cc. Laceration:: vaginal and labial Placental Delivery Description: Spontaneous
[2023-12-19] MEDS: IBUPROFEN 400 MG TABLET 800 MG PO ×2 (09:26→22:43)
[2023-12-19] MEDS: ACETAMINOPHEN 500MG TAB 1000 MG PO ×3 (09:26→22:43)
[2023-12-19] MEDS: miSOPROStoL 200 MCG TABLET PO (10:25)
[2023-12-19] MEDS: ONDANSETRON 4MG/2ML VIAL 4 MG IV (10:42)
[2023-12-19] MEDS: METHYLERGONOVINE MALEATE 0.2MG/ML INJ 0.200000000000000011 MG IM (10:45)
[2023-12-19] MEDS: ONDANSETRON 4MG ODT 4 MG SL (10:45)
--- NOTE | 2023-12-19 11:50 | P.PN_ITS ---
Subjective *Date: 12/19/23 *Time: 11:50 Interval history: I was asked to see the patient because she had some excess blood loss. She had passed a large clot the size of a baseball and she then received 200 mcg of Cytotec. She was receiving IV oxytocin. I examined the patient and she had minimal blood loss with the examination. The uterus was well-contracted. I elected to give her 1 dose of Methergine as well. We ordered her blood to be typed and crossed. Medical Exam Vital signs and Labs for Last 24 Hours: Vital Signs Temp Pulse Resp BP Pulse Ox O2 Del Method 12/18/23 20:11 98.4 F 87 17 146/85 H 97 Room Air 12/18/23 14:59 98.5 F 91 H 16 127/81 100 Room Air Intake and Output 12/18/23 12/19/23 12/19/23 19:59 03:59 11:59 Other: Weight 161 lb Patient Weight 12/19/23 11:59 Weight 161 lb Laboratory Results - last 24 hr 12/18/23 14:20: WBC 8.4, RBC 3.58 L, Hgb 11.1 L, Hct 32.5 L, MCV 90.9, MCH 31.0, MCHC 34.1, RDW 13.4, Plt Count 131 L, MPV 10.6 H, Neut % (Auto) 74.0, Lymph % (Auto) 21.1, [place] % (Auto) 4.5, Eos % (Auto) 0.3, Baso % (Auto) 0.2, Neut # (Auto) 6.2, Lymph # (Auto) 1.8, [place] # (Auto) 0.4, Eos # (Auto) 0.0, Baso # (Au to) 0.0, PT 9.8 L, INR 0.90, APTT 26.2, Fibrinogen 406 H, Sodium 136, Potassium 3.6, Chloride 112 H, Carbon Dioxide 20 L, Anion Gap 7.6, BUN 7, Creatinine 0.50 L, Estimated Creat Clear 207, Estimated GFR 157, Est GFR ( Amer) 190, Glucose 81, Uric Acid 4.8, Calcium 8.5, AST 25, ALT 14, Urine Opiates Screen Negative, Urine Methadone Screen Negative, Ur Barbituates Screen Negative, Ur Phencyclidine Scrn Negative, Ur Amphetamines Screen Negative, U Benzodiazepines Scrn Negative, Urine Cocaine Screen Negative, U Marijuana (THC) Screen Negative, Blood Type O Negative, Antibody Screen Positive, Antibody Identification Anti-D I & O for Labs for Last 24 Hours: Intake & Output 12/16/23 12/17/23 12/18/23 12/19/23 11:59 11:59 11:59 11:59 Weight 161 lb Head: Present atraumatic ENT: Present normal exam Comment:: She appeared quite pale and was nauseous when I saw her. Respiratory: Present normal respiratory effort; Absent accessory muscle use GI: Present soft; Absent distention Assessment and Plan *Assessment and plan (1) Normal delivery: Status: Acute Category: Medical Code(s): O80 - Encounter for full-term uncomplicated delivery (2) hemorrhage: Status: Acute Qualifiers: hemorrhage type: unspecified Qualified Code(s): O72.1 - Other immediate hemorrhage Category: Medical Code(s): O72.1 - Other immediate hemorrhage Plan After examining her and making sure there were no clots within the uterus, her uterus was firm and well-contracted. There was no further active bleeding. We have typed and crossed for 2 units of blood. She has received 1 dose of Methergine as well as 200 mcg of Cytotec and oxytocin. If she has any further bleeding we will certainly consider a Nabila. We have a repeat H&H for later this afternoon. Her total blood loss after weighing the checks was 1690 mL. At this point in time she has minimal blood loss and is hemodynamically stable.
--- NOTE | 2023-12-19 13:45 | SW/DCPLANNER ---
I received a referral for this patient regarding: THC use early in . Patient tested positive for THC on 06/10/2023. Patient urine drug screens were negative on the following dates: 10/09/23 and admission 12/18/2023. Patient delivered male (Fabio Mcdaniels) on . Infant's father (Dominic Mcdaniels 02/24/05) is involved. Patient and will reside at [address] [place] [address] in [facility]. Patient's contact number is [phone]. This is patient's first child. Patient will be in contact with [facility] and I will reach out to [facility] regarding delivery (patient is interested in services). Patient stated that she has the following items at home: crib, carseat, clothing, diapers and will be breast feeding. PED MD will be Dr Monge and patient stated that she will have transportation to all follow up appointments. Patient is planned to discharge on 12/21/23 pending no setbacks. Per OB staff (Swathi) patient is appropriate w/ .
[2023-12-19 16:52] LABS: Hematocrit 26.4 % (37.0-47.0); Hemoglobin 8.8 g/dL (12.2-16.2)
[2023-12-20 07:15] LABS: Hematocrit 21.9 % (37.0-47.0)
[2023-12-20 07:16] LABS: Hemoglobin 7.2 g/dL (12.2-16.2)
[2023-12-20 07:51] VITALS: BP 118/70; PULSE 86; RESP 16; TEMP 36.9; O2SAT 100
--- NOTE | 2023-12-20 08:41 | EXP.ACUTE.PN ---
Subjective *Date: 12/20/23 *Time: 08:41 Interval history: PPD # 1 s/p and hemorrhage Nina is resting comfortably in bed. Pain controlled. Lochia is appropriate. Breast feeding. Voiding without difficulty and passing flatus. Tolerating regular diet. Denies fever/chills, chest pain and shortness of breath. Denies lightheadedness/dizziness, headaches and vision changes. Ambulating well ad shira. Medical Exam Vital signs and Labs for Last 24 Hours: Vital Signs Temp Pulse Resp BP Pulse Ox O2 Del Method 12/20/23 07:51 98.5 F 86 16 118/70 100 Room Air Laboratory Results - last 24 hr 12/18/23 14:20: Blood Type O Negative, Antibody Screen Positive, Crossmatch (AHG) See Detail 12/19/23 16:13: Hgb 8.8 L, Hct 26.4 L 12/20/23 06:38: Hgb 7.2 L D, Hct 21.9 L I & O for Labs for Last 24 Hours: Intake & Output 12/17/23 12/18/23 12/19/23 12/20/23 23:59 23:59 23:59 23:59 Weight 161 lb Head: Present atraumatic and normocephalic ENT: Present normal exam Neck: Present full ROM Respiratory: Present CTA bilaterally and normal respiratory effort Cardiac: Present Reg Rate and Rhythm GI: Present soft; Absent distention or tenderness Comments:: Uterine fundus firm and below umbilicus Rectal (female): Present deferred (female): Present deferred Extremities: Present full ROM; Absent edema or calf tenderness Neuro: Present alert, awake and moves all extremities Assessment and Plan *Assessment and plan (1) Normal delivery: Status: Acute Category: Medical Code(s): O80 - Encounter for full-term uncomplicated delivery (2) -induced hypertension in third trimester: Status: Acute Category: Medical Code(s): O13.3 - Gestational [-induced] hypertension without significant proteinuria, third trimester (3) hemorrhage: Status: Acute Qualifiers: hemorrhage type: unspecified Qualified Code(s): O72.1 - Other immediate hemorrhage Category: Medical Code(s): O72.1 - Other immediate hemorrhage (4) Acute post-hemorrhagic anemia: Status: Acute Category: Medical Code(s): D62 - Acute posthemorrhagic anemia Plan Continue routine care Venofer 200 mg IV x 1 dose Plan for d/c tomorrow, PPD # 2
--- NOTE | 2023-12-20 09:06 | PC.NURSE ---
Spoke with Dr. Lentz regarding pt's H&H. pt denies H/A, Dizziness, blurred vision. pt reports scant amount of bleeding. states pt will receive Venofer IV.
[2023-12-20] MEDS: MEDROXYPROGESTERONE ACETATE 150MG/ML SYR 150 MG IM (09:21)
[2023-12-20] MEDS: SENNA 8.6MG TABLET 8.59999999999999964 MG PO ×2 (09:21→20:12)
[2023-12-20] MEDS: IRON SUCROSE COMPLEX 200 MG in 0.9 % SODIUM CHLORIDE 100 ML 220 MG IV (10:21)
[2023-12-20] MEDS: RHO(D) IMMUNE GLOBULIN 1,500 UNIT SYRINGE 1500 UNIT IM (11:23)
[2023-12-20] MEDS: IBUPROFEN 400 MG TABLET 800 MG PO ×2 (13:21→20:37)
[2023-12-20] MEDS: ACETAMINOPHEN 500MG TAB 1000 MG PO ×2 (13:22→20:12)
[2023-12-20 16:00] VITALS: BP 114/59; PULSE 68; RESP 16; O2SAT 99
[2023-12-20 20:00] VITALS: BP 137/80; PULSE 109; RESP 18; TEMP 37.1; O2SAT 100
[2023-12-21 04:00] VITALS: BP 145/78; PULSE 86; RESP 18; TEMP 36.6; O2SAT 100
[2023-12-21] MEDS: IBUPROFEN 400 MG TABLET 800 MG PO ×2 (05:07→12:53)
[2023-12-21] MEDS: ACETAMINOPHEN 500MG TAB 1000 MG PO (05:08)
--- NOTE | 2023-12-21 10:45 | P.DS_ITS ---
General Admission date:: 12/18/23 Discharge date: 12/21/23 HPI HPI HPI: PPD # 2 s/p Nina is resting comfortably in bed. Pain controlled. Breast feeding. Light lochia. Voiding without difficulty and passing flatus. Tolerating regular diet. Denies fever/chills, chest pain and shortness of breath. No lightheadedness/dizziness, headaches or vision changes. Ambulating well ad shira. Hospital Course Hospital Course Hospital Course: Ms Nina Mendez is a 18 yo at 38 weeks and 5 days gestational age. At her office visit 12/18 her blood pressure was elevated at 140/114. She denied headache, scotomata or epigastric pain. She had significant swelling in her face, hands and feet. She was admitted to [facility] L[facility] for induction of labor secondary to PIH. She underwent induction of labor with Cytotec. She delivered a live male baby, Qmani, weighing 6 lb 13 oz. APGARs 7 (1 min), 9 (5 min), EBL 150 mL during delivery. However, she started bleeding heavily a few hours after delivery. QBL 1690 mL. She received Venofer 200 mg IV x 1 dose on PPD # 1. She was asymptomatic from hemorrhage. She did well . Pain controlled. Breast feeding. Light lochia. Voiding without difficulty and passing flatus. Tolerating regular diet. Denies fever/chills, chest pain and shortness of breath. No headaches, dizziness/lightheadedness or vision changes. Vital signs stable, afebrile. Heart regular rate and rhythm. Lungs clear to auscultation. Abdomen soft, nontender. She had +2 bilateral ankle and pedal edema. Ambulating well ad shira. She was discharged to home on POD # 2 with instructions to follow-up in the office in 2 weeks or sooner if needed. Exam Data for Last 24 hours Vital signs and Labs for Last 24 Hours: Temp Pulse Resp BP Pulse Ox O2 Del Method 97.8 F 86 18 145/78 H 100 Room Air 12/21/23 04:00 12/21/23 04:00 12/21/23 04:00 12/21/23 04:00 12/21/23 04:00 12/21/23 04:00 Laboratory Results - last 24 hr 12/20/23 06:38: Screen Negative, Baby's Rh Status Positive, Rhogam Infusion Rhogam release I & O for Last 24 hours: Intake & Output 12/18/23 12/19/23 12/20/23 12/21/23 23:59 23:59 23:59 23:59 Weight 161 lb Constitutional Constitutional: no acute distress and cooperative *Routine HEENT Exam Head: Present normocephalic and atraumatic Eye: Absent conjunctivae pink ENT: Present mucous membranes moist *Routine Neck Exam Neck: Present full ROM *Routine Respiratory Exam Respiratory: Present CTA bilaterally and normal respiratory effort *Routine Cardiovascular Exam Cardiovascular: Present RRR *Routine Abdominal Exam Abdominal: Present soft; Absent tenderness or distended Comments: Uterine fundus firm and below umbilicus *Routine Rectal Exam Patient deferred: visual exam *Routine Exam Patient deferred: external exam *Routine Extremities Exam Extremities: Present edema (+2 bilateral ankle and pedal edema) and full ROM; Absent calf tenderness *Routine Neurological Exam Neurological: Present alert, moving all extremities and normal speech Routine Psychiatric Exam Psychiatric: Present normal affect and cooperative Results Data Completed and Pending Labs on day of discharge: Labs from last 24 hours 12/20/23 06:38 Screen Negative Baby's Rh Status Positive Rhogam Infusion Rhogam release DS: Diagnosis Discharge Diagnosis (1) Normal delivery: Status: Acute Code(s): O80 - Encounter for full-term uncomplicated delivery (2) -induced hypertension in third trimester: Status: Acute Code(s): O13.3 - Gestational [-induced] hypertension without significant proteinuria, third trimester (3) hemorrhage: Status: Acute Code(s): O72.1 - Other immediate hemorrhage Qualifiers: hemorrhage type: unspecified Qualified Code(s): O72.1 - Other immediate hemorrhage (4) Acute post-hemorrhagic anemia: Status: Acute Code(s): D62 - Acute posthemorrhagic anemia Meds Home Medications and Allergies Home Medications Medication Instructions Recorded Confirmed Type ferrous sulfate 325 mg (65 mg 325 mg PO DAILY Supplement 12/04/23 12/18/23 History iron) tablet,delayed release vits no.126-ferrous fum 1 tab PO DAILY Supplement 12/04/23 12/18/23 History 28 mg iron-folic acid 800 mcg tablet (Classic ) ibuprofen 800 mg tablet 800 mg PO Q8H PRN pain #20 tabs 03/02/24 Rx New Prescriptions to Start Prescriptions: ibuprofen Brea Lentz Allergies Allergy/AdvReac Type Severity Reaction Status Date / Time No Known Allergies Allergy Verified 12/18/23 10:30 Discharge Plan Disposition Patient Disposition: Home, Self-Care Condition: Good Discharge Order Discharge Orders: Discharge Order (Routine); Ordered 12/21/23 Ordered By: Brea Lentz Follow up Plan Follow up with: Brea Lentz DO [Staff Physician] - 2 weeks Prescriptions/Medication Reconciliation: New ibuprofen 800 mg tablet 800 mg PO Q8H PRN (Reason: pain) Qty: 20 0RF Continued ferrous sulfate 325 mg (65 mg iron) tablet,delayed release (DR/EC) 325 mg PO DAILY Patient Comments: TAKE 1 TABLET BY MOUTH ONCE DAILY Classic 28 mg iron- 800 mcg tablet 1 tab PO DAILY Problem Reconciliation Problems Reviewed?: Yes Patient Discharge Instructions ACTIVITY: Limited activity DIET: continue same diet and regular diet Additional Instructions: Discharge: 1. Take 800 mg Ibuprofen every 8 hours as needed for pain. You can also take 500-1000 mg of Tylenol in between doses, every 6-8 hours. 2. Nothing in the vagina for 6 weeks - no intercourse, douching or tampons. No tub baths/hot tubs or swimming pools 3. Reasons to return to L&D or call On-Call doctor - fever (greater than 100.4) - heavy vaginal bleeding (soaking through 1 pad in less than 2 hours) - vaginal discharge (malodorous and/or purulent) - severe headaches not resolved by medication or rest and leg tenderness/edema 4. depression/blues - Normal to feel anxious/overwhelmed for first 2 weeks - Talk to your doctor if: severe anxiety, trouble bonding with baby, withdrawing from other family members, thoughts of harming yourself or others Brea Lentz DO [facility] [phone] Patient Instructions: Depression, Hemorrhage, DI for Labor and Delivery, Vaginal , DI for Pre-eclampsia, [facility] Post Discharge Instructions Providers Primary Care Provider: Steve Monge Admit Provider: Ren Sweet Attending Provider: Ren Sweet
[2023-12-21] MEDS: TET/DIPHTH/PERT-ADULT 0.5ML SYRINGE 0.5 ML IM (13:29)
[2023-12-21] MEDS: BENZOCAINE-MENTHOL SPRAY 56GM CAN TP (14:00)
[2023-12-21] MEDS: WITCH HAZEL 40 PADS/BOX 1 EACH TP (14:00)
== END 2023-12-21 14:28 | disposition home or self-care (01) | DRG 806 ==
PROVIDERS: Admitting Provider Nurse Practitioner Obstetrics & Gynecology; PCP Internal Medicine Adolescent Medicine; Visit Provider Nurse Practitioner Obstetrics & Gynecology
DX: O16.4 Unspecified maternal hypertension, complicating childbirth (principal); D62 Acute posthemorrhagic anemia; Z37.0 Single live birth; Z3A.38 38 weeks gestation of pregnancy; O99.334 Smoking (tobacco) complicating childbirth; F17.290 Nicotine dependence, other tobacco product, uncomplicated; O90.81 Anemia of the puerperium; O72.1 Other immediate postpartum hemorrhage; O70.0 First degree perineal laceration during delivery
CPT/HCPCS: 59409; 36415; 59025; 80048; 80307; 84450; 84460; 84550; 85014; 85018; 85025; 85384; 85461; 85610; 85730; 86850; 86870; 90715; 94761; G0283; J1050; J1756; J2405; J2790

== ENCOUNTER 2024-03-28 11:49 | Outpatient (CLI) | payer MEDICAID, SELFPAY ==
--- NOTE | 2024-03-28 12:39 | PC.NURSE ---
Consult from Nina is here today for a consultation to check for growth and milk supply. Nina delivered at 39 weeks and has been since with no supplementation. She reports that she feels her supply is good and infant is thriving. Nina wishes to have this consult to ease her mind and make sure. is healthy appearing 3 month old. weight of infant 6# 13, and today's weight is 13 # 6. nursing during consultation and post feeding weight was 13 # 10.3. Reassured mother that this is an adequate amount. Nina was educated on intake, paced bottle feeding and what to expect. Flange sized at 17mm. Patient wishes to see me monthly. Instructed patient to call and we would schedule those. Patient left at [id number]
== END 2024-03-28 12:34 | disposition home or self-care (01) ==
LOC: OBOUT 11:51 → OB 11:51
PROVIDERS: PCP Internal Medicine Adolescent Medicine; Visit Provider Obstetrics & Gynecology
DX: Z39.1 Encounter for care and examination of lactating mother (principal)

== ENCOUNTER 2024-04-12 22:35 | Emergency (ER) | payer MEDICAID, SELFPAY ==
[2024-04-12 22:36] VITALS: BP 122/78; PULSE 80; RESP 14; TEMP 36.9; O2SAT 97; BMI 24.3
--- NOTE | 2024-04-12 22:46 | ED_ITS ---
Discharge Plan Prescriptions Prescriptions: No Action medroxyprogesterone [Depo-Provera] 150 mg/mL suspension 150 mg IM [id number] Qty: 1 3RF estradiol 2 mg tablet 2 mg PO DAILY Qty: 30 3RF Referrals Follow up/Referrals: Steve Monge MD [Primary Care Provider] - See instructions Discharge ED Provider: Jessika Willis General Adult HPI General Stated complaint: possible infected dermal piercing Time Seen by Provider: 04/12/24 22:46 Related Data Previous Rx's Medication Instructions Recorded estradiol 2 mg tablet 2 mg PO DAILY #30 tabs 01/29/24 medroxyprogesterone 150 mg/mL 150 mg IM [id number] #1 mL 03/11/24 intramuscular suspension (Depo-Provera) Allergies Allergy/AdvReac Type Severity Reaction Status Date / Time No Known Allergies Allergy Verified 03/11/24 13:04 [facility] Disclaimer: The information contained in this section may have been updated after the patient was seen, as this information can be updated by other users. Medical History Acute post-hemorrhagic anemia Gastroenteritis Surgical History Status post vaginal delivery No history of previous surgery Family History Other No significant family history Social History Smoking Status: Current every day smoker tobacco type: e-cigarettes alcohol intake: never substance use type: denies use current occupational status: employed Travel in the last 8 weeks: None household members: family housing: house caffeine: No ROS Obtained: Yes Systems reviewed as appropriate & no additional complaints except as documented Physical Exam General General appearance: alert and in no apparent distress Head Head exam: atraumatic and normal inspection Eye Eye exam: Present normal appearance, PERRL and EOMI ENT ENT exam: Present normal exam, normal oropharynx and mucous membranes moist Neck Neck exam: Present normal inspection, full ROM and trachea midline; Absent lymphadenopathy Chest Chest inspection: Present normal inspection and symmetric chest wall rise Respiratory Respiratory exam: Present normal lung sounds bilaterally; Absent accessory muscle use Cardiovascular Cardiovascular exam: Present regular rate, normal rhythm, normal heart sounds, +S1 and +S2 Abdominal Exam Abdominal exam: Present soft and normal bowel sounds; Absent tenderness, guarding or rebound Extremities Exam Extremities exam: Present normal inspection and full ROM Neurological Exam Neurological exam: Present alert, oriented X3 and CN II-XII intact Psychiatric Psychiatric exam: Present normal affect and normal mood Skin Skin exam: Present warm, dry and normal color Lymphatic Lymphatic Findings: no adenopathy Medical Decision Making Medical Decision Narrative: In summary patient is a [age, sex] who presents to the emergency department for evaluation of [complaint]. Patient is [hemodynamically stable/unstable] upon arrival, [febrile/afebrile]. [Unremarkable physical exam, nonfocal exam versus focal remarkable exam]. Differential diagnosis includes [DDx]. Initial workup will be conducted with [hematologic labs, imaging, respiratory swab, describe workup]. Initial interventions include [crystalloid bolus, medications, p.o. challenge, etc.] initial workup reviewed by me [hematologic labs are remarkable for... Imaging remarkable for... Urinalysis remarkable for]. Upon repeat evaluation [patient had acceptable resolution of symptoms, had persistent pain for which additional interventions were conducted (describe interventions), tolerated p.o., was ambulatory, etc.]. Given this [patient is appropriate for discharge at this time and will be discharged with a prescription for... The case was discussed with hospital medicine regarding management and they will admit the patient their service for continued evaluation at this time... Etc.] Places where you can increase complexity: I informally interpreted the patient's chest x-ray or CT read and is remarkable for... Documenting what the security monitor shows with rate and rhythm Consideration of test but deferring. Ex: I considered chest x-ray on this patient however given that they have no oxygen requirement and are clear to auscultation all lung etienne will be deferred. Social determinants of health: Given that patient is undomiciled increases complexity. Given that patient has polysubstance abuse compounds all aspects of care
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
[2024-04-12 23:25] VITALS: BP 115/75; PULSE 74; RESP 16; TEMP 36.9; O2SAT 97
== END 2024-04-12 23:26 | disposition home or self-care (01) ==
PROVIDERS: Emergency Provider Emergency Medicine; PCP Internal Medicine Adolescent Medicine
DX: S20.359A Superficial foreign body of unspecified front wall of thorax, initial encounter (principal); W45.8XXA Other foreign body or object entering through skin, initial encounter
CPT/HCPCS: 10120; 99283